=== PATIENT | male | born 2005 | race Caucasian/White ===

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

== ENCOUNTER 2025-01-15 01:02 | Emergency (ER) | payer OTHER ==
[2025-01-15] MEDS: Acetaminophen 500 MG Tab PO ONE (01:37)
[2025-01-15] MEDS: Ibuprofen 600 MG Tab PO ONE (01:38)
== END 2025-01-15 01:59 | disposition home or self-care (01) ==
LOC: FB.ED 01:02
DX: J02.9 Acute pharyngitis, unspecified (principal); Z88.1 Allergy status to other antibiotic agents
CPT/HCPCS: 87651; 99283; A9270